=== PATIENT | male | born 1990 | race Caucasian/White ===

== ENCOUNTER 2020-04-11 09:49 | Emergency (ER) | payer SELFPAY ==
[2020-04-11 10:01] VITALS: BP 113/66; PULSE 69; RESP 16; TEMP 36.7; O2SAT 99
[2020-04-11 10:09] VITALS: BP 113/66; PULSE 69; RESP 16; TEMP 36.7; O2SAT 99
--- NOTE | 2020-04-11 10:14 | ED.SKABFB ---
HPI - Skin/Abscess/Foreign Bdy General Chief complaint: Extremity Injury, Upper Stated complaint: infected right 3rd finger Time Seen by Provider: 04/11/20 10:08 Source: patient and RN notes reviewed Mode of arrival: ambulatory Limitations: no limitations History of Present Illness HPI narrative: Patient presents today complaining of swelling, redness, and pain to the right third finger x1 week. States he has been able to express some drainage from around the fingernail approximately 1 week ago, but none since then. He has tried some OTC ointment without relief. He has been taking ibuprofen without relief. Currently rates his pain 3/10 at rest which increases with touching or movement. Related Data Allergies Allergy/AdvReac Type Severity Reaction Status Date / Time No Known Allergies Allergy Verified 04/11/20 10:08 Review of Systems Review of Systems: Narrative: CONSTITUTIONAL: Denies body aches, fever, chills, or sweats. EYES: Denies visual changes, redness, or discharge. ENT: Denies rhinorrhea, congestion, sore throat, or otalgia. CARDIOVASCULAR: Denies chest pain, palpitations, or edema. RESPIRATORY: Denies cough or dyspnea. GASTROINTESTINAL: Denies abdominal pain, nausea, vomiting, or diarrhea. GENITOURINARY: Denies dysuria or hematuria. SKIN: Denies rash, itching, or wounds. MUSCULOSKELETAL: Denies back pain, or myalgia. + Redness, swelling, and pain to the right third finger NEUROLOGIC: Denies headache, numbness, tingling, or weakness. PSYCH: Denies depression or anxiety. PMFSH Social History Social History Gender identity (if verbalized by the patient): Male Comments At time of signature, I have reviewed and agree with nursing past medical, surgical, social and family history unless otherwise noted. Please see nursing chart for further information. There is no relevant family history pertinent to the presenting complaint Exam Narrative: Exam Narrative: GENERAL: Well-appearing, well-nourished, and in no acute distress. HEAD: Normocephalic, atraumatic. EYES: EOMI. No redness or drainage. Conjunctivae normal. ENT: Mucous membranes pink and moist. NECK: Normal AROM. CHEST: No respiratory distress. EXTREMITIES: Right 3rd finger: Moderate edema and erythema to the distal phalanx with paronychia to the ulnar side of the nail fold. This area is very tender to palpation. There does not seem to be a subungual abscess. Distal sensation intact. Capillary refill normal. Full range of motion of the finger. SKIN: Warm, dry, no rash. Capillary refill normal. Normal skin turgor. NEURO: No focal deficits. Alert and oriented x3. Gait steady. PSYCH: Normal affect. No signs of depression or anxiety. Course Vital Signs Vital signs: Vital Signs Temperature 98.1 F 04/11/20 10:01 Pulse Rate 69 04/11/20 10:01 Respiratory Rate 16 04/11/20 10:01 Blood Pressure 113/66 04/11/20 10:01 Pulse Oximetry 99 04/11/20 10:01 Temperature 98.1 F 04/11/20 10:09 Pulse Rate 69 04/11/20 10:09 Respiratory Rate 16 04/11/20 10:09 Blood Pressure 113/66 04/11/20 10:09 Pulse Oximetry 99 04/11/20 10:09 Reviewed Procedures Abscess I/D hand: Date of Incision: 04/11/20 Time of Incision: 10:20 Side (if applicable): right Sedation/analgesia: none Local Anesthetic: none Technique: incised with #11 blade Irrigation: No Packing used?: none I&D Results: Pus Abcess I&D Additional Comments: Paronychia lanced to right third finger. Moderate amount of green purulent discharge resulting. Patient tolerated procedure well. Dressed with a Band-Aid. MDM - Skin/Abscess/Foreign Bdy Differential Diagnosis Differential diagnosis: Likely abscess of skin or subcutaneous tissue, cellulitis and other (Paronychia, subungual abscess) Critical Care Time Critical Care Time Critical Care Time: No Discharge Plan Discharge Clinical Impression: Paronychia
== END 2020-04-11 10:42 | disposition home or self-care (01) ==
PROVIDERS: Emergency Provider Nurse Practitioner
DX: L03.011 Cellulitis of right finger (principal)
CPT/HCPCS: 10060; 99203; G0463

== ENCOUNTER 2021-06-12 12:52 | Emergency (ER) | payer SELFPAY ==
--- NOTE | ~2021-06-12 | CT_ITS ---
EXAMINATION: CT abdomen pelvis wo con DATE: 06/12/2021 15:12 INDICATION: Left flank pain TECHNIQUE: Computed tomography (CT) of the abdomen and pelvis was performed without intravenous contr ast. Automated exposure control and iterative reconstruction technique were employed. The dose-length product was 246.07 mGy-cm. COMPARISON: None FINDINGS: 4 mm subpleural right middle lobe nodule. Lung bases are otherwise clear. Heart size is normal. No pe ricardial or pleural effusion. Liver, gallbladder, spleen, pancreas and bilateral adrenal glands are normal. 3 mm at least partially obstructing stone at the left ureterovesicular junction with mild lef t hydroureteronephrosis. Right kidney and ureter are normal with no urolithiasis or hydronephrosis. P artially decompressed bladder is unremarkable. Bowels including the appendix are normal. No free intr aperitoneal gas or fluid. No pathologically enlarged abdominal or pelvic lymphadenopathy. Bones are u nremarkable. IMPRESSION: 1. At least partially obstructing 3 mm stone at the left ureterovesicular junction with mild left hyd roureteronephrosis. Reviewed, dictated and finalized at location [facility] IMPRESSION: 1. At least partially obstructing 3 mm stone at the left ureterovesicular junct ion with mild left hydroureteronephrosis.
[2021-06-12 13:10] VITALS: BP 128/100; PULSE 77; RESP 16; TEMP 36.6; O2SAT 100
--- NOTE | 2021-06-12 14:50 | ED.ABDPAIN ---
HPI - Abdominal Pain General Chief Complaint: Abdominal Pain Stated Complaint: LLQ abd pain Time Seen by Provider: 06/12/21 14:35 Source: patient Mode of arrival: ambulatory Limitations: no limitations History of Present Illness HPI narrative: Patient presents with left flank and left lower abdominal pain started 3 hours prior to arrival to the emergency room, associated with nausea and vomiting once. Patient denies any fever, chills, diarrhea, constipation or urinary symptoms. Patient is healthy otherwise. Patient does not smoke, does not drink and uses marijuana intermittently Related Data Allergies Allergy/AdvReac Type Severity Reaction Status Date / Time No Known Allergies Allergy Verified 04/11/20 10:08 Review of Systems Review of Systems: CONSTITUTIONAL: Denies fever, chills, or sweats. EYES: Denies visual changes, redness, or discharge. ENT: Denies rhinorrhea, congestion, sore throat, or otalgia. CARDIOVASCULAR: Denies chest pain, palpitations, or edema. RESPIRATORY: Denies cough or dyspnea. GASTROINTESTINAL: Denies abdominal pain, nausea, vomiting, or diarrhea. GENITOURINARY: Denies dysuria or hematuria. SKIN: Denies rash or itching. MUSCULOSKELETAL: Denies back pain, joint pain, or myalgia. NEUROLOGIC: Denies headache, numbness, or weakness. PSYCHIATRIC: Denies anxiety or depression. PMFSH Social History Social History Gender identity (if verbalized by the patient): Male Exam Narrative: General appearance: Well-developed, well-nourished Skin: Normal color Head: Normocephalic, nontraumatic Eyes: Clear conjunctiva ENT: Oropharynx normal, ears normal, nose normal Neck: Supple, nontender Chest and respiratory: Airway patent, no respiratory distress, no accessory muscle use Heart: Regular rate/rhythm Abdomen: Soft, mild tenderness left flank r, no organomegaly, quiet bowel sounds Vascular: Normal peripheral pulses, normal capillary refill. Musculoskeletal: Normal range of motion, nontender back Neurologic: Alert and oriented ?3, [employer] is normal as tested, no gross motor deficit Course Course Emergency Course: Stable, improving Vital Signs Vital signs: Vital Signs Temperature 36.6 C 06/12/21 13:10 Pulse Rate 77 06/12/21 13:10 Respiratory Rate 16 06/12/21 13:10 Blood Pressure 128/100 H 12/25/21 13:10 Pulse Oximetry 100 06/12/21 13:10 Temperature 36.6 C 06/12/21 13:10 Pulse Rate 77 06/12/21 13:10 Respiratory Rate 16 06/12/21 13:10 Blood Pressure 128/100 H 06/12/21 13:10 Pulse Oximetry 100 06/12/21 13:10 MDM - Abdominal Pain MDM Narrative Medical decision making narrative: Kidney stone is my concern Differential Diagnosis Differential diagnosis: Likely abdominal pain, calculus of kidney, constipation, diverticulitis and pancreatitis Critical Care Time Critical Care Time Critical Care Time: Yes Total Critical Care Time: 35 Discharge Plan Discharge Clinical Impression: Kidney calculi Patient Disposition: Home, Self-Care Condition: Improved Instructions: Antibiotic Form, Kidney Stones (ED), How to Strain Your Urine (ED) Additional Instructions: Return if symptoms are worsening , call your family physician for appointment, take Tylenol as as needed for aches and pain, continue home medications., Strain urine Prescriptions: New hydrocodone-acetaminophen 5-325 mg tablet 1 tablet PO Q6H Qty: 20 RF: 0 tamsulosin [Flomax] 0.4 mg capsule 0.4 mg PO DAILY Qty: 10 RF: 0 ondansetron HCl [Zofran] 4 mg tablet 4 mg PO Q6H PRN (Reason: nausea and vomiting) Qty: 10 RF: 0 No Action amoxicillin-pot clavulanate [Jan
[2021-06-12 14:56] LABS: Basophils Absolute Auto 0.1 K/mm3 (0.0-0.1); Basophils Percent Auto 0.3 % (0.2-1.2); Hematocrit 42.7 % (42.0-52.0); Hemoglobin 13.5 g/dL (14.0-18.0); Immature Granulocyte Absolute 0.05 K/mm3 (0.00-0.031); Immature Granulocyte Percent A 0.3 % (0-0.5); Lymphocytes Absolute Auto 0.89 K/mm3 (0.9-3.2); Lymphocytes Percent Auto 5.8 % (18.3-44.2); Mean Corpuscular HGB Conc 31.6 g/dl (32-36); Mean Corpuscular Hemoglobin 23.1 pg (26-34); Mean Platelet Volume 9.7 fl (7.4-10.4); Monocytes Absolute Auto 0.6 K/mm3 (0.1-0.6); Monocytes Percent Auto 3.7 % (2.6-8.5); Neutrophils Absolute Auto 13.7 K/mm3 (1.3-6.7); Neutrophils Percent Auto 89.9 % (45.5-73.1); Platelet Count Result 240 k/mm3 (150-375); Red Blood Count 5.85 M/mm3 (4.6-6.20); Red Cell Distribution Width 14.6 % (11.5-14.5); White Blood Count 15.3 K/mm3 (4.5-10.0)
[2021-06-12] MEDS: HYDROmorphone HCL INJ (*CRX) 1 MG/ML SYR 0.5 MG IV PUSH (14:57)
[2021-06-12] MEDS: ONDANSETRON INJ 4 MG/2 ML VIAL IV PUSH (14:57)
[2021-06-12] MEDS: SODIUM CHLORIDE 0.9% IV 1,000 ML 999 ML IV CONT (14:58)
[2021-06-12 15:07] LABS: Alanine Aminotransferase 31 U/L (4-50); Albumin Level 4.9 g/dL (3.5-5.1); Alkaline Phosphatase 102 U/L (38-126); Anion Gap 8 mmol/L (8-16); Aspartate Amino Transferase 33 U/L (17-59); Bilirubin,Total 0.6 mg/dL (0.2-1.3); Blood Urea Nitrogen 15 mg/dL (9-20); Calcium 9.6 mg/dL (8.4-10.2); Carbon Dioxide 24 mmol/L (22-30); Chloride 102 mmol/L (98-107); Estimated CRCL calculation 96 ml/min; Estimated Glomerular Filt Rate > 60; Glucose 110 mg/dL (65-110); Lipase 31 U/L (23-300); Potassium 3.9 mmol/L (3.4-5.0); Sodium 134 mmol/L (137-145)
[2021-06-12 15:27] VITALS: TEMP 36.6
--- NOTE | 2021-06-12 16:00 | PC.NURSE ---
Per CHANA Morataya, no urine needed.
[2021-06-12] MEDS: KETOROLAC 30 MG/ML VIAL (*BKC) IV PUSH (16:20)
[2021-06-12] MEDS: TAMSULOSIN HCL 0.4 MG CAPSULE PO (16:38)
[2021-06-12 16:50] VITALS: TEMP 36.6
[2021-06-12 16:51] VITALS: BP 137/96; PULSE 87; RESP 19; O2SAT 98
--- NOTE | 2021-06-12 16:55 | PC.NURSE ---
Patient sent home with urine strainer per verbal order read-back by CHANA Morataya.
== END 2021-06-12 16:55 | disposition home or self-care (01) ==
PROVIDERS: Emergency Provider Emergency Medicine
DX: N13.2 Hydronephrosis with renal and ureteral calculous obstruction (principal)
CPT/HCPCS: 36415; 74176; 80053; 83690; 85025; 96361; 96374; 96375; 99284; A9270; J1170; J1885; J2405; J7030